=== PATIENT | female | born 1980 ===

== ENCOUNTER 2016-04-07 18:31 | Emergency (ER) | payer BC ==
--- NOTE | 2016-04-08 01:06 | ER ---
ADMIT: 04/07/2016 RM/LOC: ER [facility] MR#: [id number] [address] [address] [place] [address] Emergency Room Report SEX: F AGE: 36 : 1980 DATE: 04/07/2016 The patient is a 36-year-old female complaining of 4-day history of left earache, headache, sore throat, stiff neck without fevers, chills, or cough. Exam remarkable for nontoxic, afebrile, nontoxic-appearing female with bilateral ceruminosis. TMs nearly obscured, but limbus appears to be clear. Nasal airway is patent. Pharynx minimally inflamed without petechiae. No meningismus or lymphadenopathy. Advised earwax removal kit. No more Q-tips. Amoxicillin 1 g p.o. q.i.d. x10 days, Motrin 800 mg t.i.d. p.r.n. Follow up Dr. Kessler as needed. Helder Beatty MD/ ayaka JOB #: [id number] CC: Helder Beatty MD, Attending Physician Otto Kessler MD, Family Physician Otto Kessler MD
== END 2016-04-07 18:58 | disposition home or self-care (01) ==
LOC: ER 18:31
DX: H92.02 Otalgia, left ear (principal); M43.6 Torticollis; R51 Headache; J02.9 Acute pharyngitis, unspecified

== ENCOUNTER 2016-04-23 22:34 | Emergency (ER) | payer BC | END 2016-04-23 23:00 | disposition left against medical advice (07) | LOC: ER 22:34 | DX: Z53.21 Procedure and treatment not carried out due to patient leaving prior to being seen by health care provider (principal) ==

== ENCOUNTER 2016-05-13 16:22 | Emergency (ER) | payer BC ==
--- NOTE | 2016-05-28 15:34 | ER ---
ADMIT: 05/13/2016 RM/LOC: ER [facility] MR#: [id number] [address] [address] [place] [address] Emergency Room Report SEX: F AGE: 36 : 1980 DATE: 05/13/2016 ADDENDUM: CHIEF COMPLAINT: Headache. HISTORY OF PRESENT ILLNESS: This is a 36-year-old, who has a history of migraines, has also been congested. COURSE IN THE EMERGENCY ROOM: I gave her Reglan, Toradol, and Benadryl, she feels significantly better. I sent her home, having her push fluids, rest, follow up with her primary care physician as needed. She does complain that she is kind of having this epigastric pain that has been chronic. She just had labs done yesterday. They are all normal. She is going to make an appointment with Dr. Buckley tomorrow to discuss her belly pain. CLINICAL IMPRESSION: Migraine headache. DANISH Huitron / Antonio Fonseca MD / ieshal JOB #: [id number] CC: Antonio Fonseca MD, Attending Physician Tracey Buckley MD, Family Physician
== END 2016-05-13 18:20 | disposition home or self-care (01) ==
LOC: ER 16:22
DX: G43.909 Migraine, unspecified, not intractable, without status migrainosus (principal)

== ENCOUNTER 2016-06-24 19:58 | Emergency (ER) | payer SELFPAY ==
--- NOTE | 2016-06-25 19:52 | ER ---
ADMIT: 06/24/2016 RM/LOC: ER [facility] [facility] MR#: [id number] [address] [address] [place] [address] Emergency Room Report SEX: F AGE: 36 : 1980 DATE: 06/24/2016 HISTORY OF PRESENT ILLNESS: The patient is a 36-year-old female, came to the ER with chief complaint of frontal headaches for the last 5 hours which started gradually, increased in severity, at the moment is severe, is very similar in the previous headaches that she had, history of migraine, in quantity and quality. The patient states she used sumatriptan and it did not resolve the pain. The patient also took Excedrin, which did not resolve the pain too. The patient also complains of photophobia and nausea. The patient denies any fever or any neck stiffness. PHYSICAL EXAMINATION: GENERAL: The patient is in moderate to severe distress, in dark room, trying to cover the face. HEENT: Pupils are 3 mm, reactive to light. The patient has mild photophobia, normal extraocular movement. ENT exam was normal. Trachea is midline. LUNGS: Clear bilaterally. HEART: Normal heart sounds. ABDOMEN: Soft. MUSCULOSKELETAL: Motor and sensory and cerebellar test are grossly normal. NECK: Soft. No Kernig or Brudzinski sign. Jolt test is negative. EMERGENCY ROOM COURSE: Considering the patient's previous history of migraine, similar episodes, and no focal deficit or neck stiffness and no fever, the patient received IV fluids, 1 L bolus normal saline and Benadryl 25 mg IV with Reglan 10 mg IV. The patient was re-examined, and she states the pain has substantially decreased and the patient stated the pain came from 10 to 2 and is resolving completely. The patient states the pain is good and she can go home. The patient is stable to be discharged home to be followed up by the primary doctor as needed. Michael Johnson MD/ ayaka JOB #: [id number] CC: Michael Johnson MD, Attending Physician Tracey Buckley MD, Family Physician
== END 2016-06-24 21:30 | disposition home or self-care (01) ==
LOC: ER 19:58
DX: R51 Headache (principal); G89.29 Other chronic pain; H53.139 Sudden visual loss, unspecified eye; Z79.899 Other long term (current) drug therapy